=== PATIENT | male | born 1995 | race Caucasian/White ===

== ENCOUNTER 2020-01-07 07:09 | Emergency (ER) | payer SELFPAY ==
[~2020-01-07] VITALS: Ht 175.3 cm; Wt 90.9 kg
[2020-01-07 07:53] VITALS: BP 129/81
== END 2020-01-07 07:55 | disposition home or self-care (01) ==
LOC: ER 07:10
DX: J20.9 Acute bronchitis, unspecified (principal); R05 Cough
CPT/HCPCS: 99282

== ENCOUNTER 2024-10-31 09:03 | Emergency (ER) | payer BC ==
[~2024-10-31] VITALS: Ht 175.3 cm; Wt 109.1 kg
[2024-10-31 09:15] VITALS: TEMP 97.8
[2024-10-31] MEDS ORDERED: AMOX-117 PO (10:11)
--- NOTE | 2024-10-31 10:12 | Physician Documentation ---
History of Present Illness ~ Chief Complaint: Ear Pain Stated Complaint: L SIDED FACIAL SWELLING/EAR PAIN Time Seen by MD: 10:07 Primary Medical Doctor: [facility] HPI This is a pleasant 29-year-old gentleman with no known allergies presents for evaluation of left ear pain/left jaw pain for the last two days. No obvious trigger, trauma provocation. Throat does not hurt. Treat it with [id number] ibuprofen and Tylenol. Has a known history of poor dentition and caries in the molar tooth on that jaw. Denies any other symptoms. No concern for tobacco, alcohol or illicit substances use. Medication Reconciliation Allergies: Coded Allergies: No Known Allergies (Unverified , 10/31/24) Past Medical History Past Medical History: No Pertinent History Past Surgical History: no surgical history Alcohol Use: None Drug Use: none Lives with: Family Lives In: Home Occupation: employed, student Review of Systems ROS 10 point review of systems was performed and unless noted above in HPI is negative for acute process/complaint. Physical Exam Vital Signs: Temperature: 97.8, Heart Rate: 66, Respiratory Rate: 14, BP: 135/82, Pulse Oximetry: 99, Weight: 109.090 Physical Exam Physical examination: GENERAL: Awake, alert, oriented, GCS 15, no apparent distress, non-toxic appearing, answers questions, follows commands appropriately. HEENT: Atraumatic, normocephalic, pupils equal, extraocular muscles intact Active gross movements, sclerae anicteric, mucus membranes moist, no stridor. NECK: Midline, no JVD CARDIOVASCULAR: Good skin perfusion without evidence of pallor, mottling. PULMONARY: Nonlabored, symmetric chest rise, no audible wheezing, no accessory muscle use, no respiratory distress, speaking in full sentences. GASTROINTESTINAL: Not distended. NEUROLOGIC: Lucid with normal mental status. Normal facial symmetry. Moves all extremities symmetrically and with purpose. No truncal ataxia. Speech is fluid without evidence of dysarthria or aphasia, no focal deficits appreciated. EXTREMITIES: Acute deformities Skin: warm, dry PSYCHIATRIC: Normal affect, normal insight, normal concentration. Focused exam: [] Bilateral tympanic membranes are within normal limits without evidence of erythema, bulging or fluid behind it. The posterior oropharynx is unremarkable without erythema or exudate. Poor dentition and caries in the 2nd molar on the left mandible noted. No floor of the mouth elevation, no brawny submandibular erythema, no trismus, no drooling, no hot potato voice. No flexion or extension of the head pain. Progress Results/Orders Results/Orders Vital Signs 10/31/24 09:15 Temp 97.8 Pulse 66 Resp 14 B/P (MAP) 135/82 Pulse Ox 99 Medical Decision Making Findings Facility Status: ED Holds, E process The plan was discussed with the patient, who demonstrates clear understanding of the plan and is in agreement with the plan unless otherwise noted in the chart. All questions have been answered, all concerns were addressed unless otherwise documented. I was available throughout their ED stay for frequent reassessment and questions. Differential Diagnoses (considered and possible or likely): [Acute otitis media, otitis media with a fusion, otitis externa, clinically no evidence of mastoiditis. With respect to potential dental source of this pain differential includes but not limited to dental pain, dental infection, clinically no evidence of abscess. Not consistent with Arben's angina. No evidence of corrina tonsillar retropharyngeal abscess.] ??Differential Diagnoses (considered and unlikely, not requiring evaluation currently): [] See above MDM Data Please see HPI for the following: Independent Historians and external Records Review. Historian: [Patient] Independent Historians: ?[None] Medication Management: [Reviewed medication list] Social History and determinants: [Reviewed] Please see the body of the note for the following: Any independent interpretations of ECG, imaging studies. All vitals signs/haemodynamics, ordered tests were independently reviewed and interpreted by myself. Nursing triage complaint and vitals reviewed, additional nursing notes were reviewed as available and I agree unless otherwise noted or documented in contradiction in the chart Vital Signs: Independently reviewed Labs: Independently interpreted Imaging: Independently interpreted Old Medical Records: Independently reviewed, see HPI for relevant summary and information Pulse Oximetry: [99%] interpreted as [normal on room air] by me Additionally notably showing: [Hemodynamically stable.] Tests considered but not ordered include: [Hematologic workup and imaging has been considered but does not appear to be necessary given clinical nature of diagnosis] Social Determinants of Health Impact: Patient was evaluated in [facility], [facility] [place] to healthcare due to below par ratio of patient to medical providers. [] Comorbid Conditions Impacting Present Evaluation and Care/Treatment: [Poor dentition, history of ear infections in childhood] Management Discussions with other Healthcare Providers: [None] Treatment and Disposition Medication Management (Given or considered): []. See EMR for details Consideration for Hospitalization/Escalation/Deescalation of Care: Admission for observation has been considered, [however the patient is able to tolerate p.o., their symptoms are controlled, they are able to rely on oral medications, and their chief complaint/diagnosis can be managed on outpatient basis.] ?ED Course:?[No clinical deterioration, no airway compromise] ?Shared decision making:?[Patient is hemodynamically stable for discharge home with follow with their primary care provider. [ ] Specific and cautious return precautions provided and discussed with full understanding. Any incidental findings were also discussed and follow up recommendations given. [] All questions answered. Patient/family were able to verbalize back return precautions. Patient/family agree to plan. Copies of imaging and laboratory studies were provided.] Code status:?FULL Please see the full Electronic Medical Record for full details of nursing documentation, medications list, other records of complete past medical history and conditions, vital signs, laboratory studies, and any radiologic study interpretations by radiologists. Portions of this note were completed using [email or web address] dictation software and as a result there may exist minor errors in spelling. I have reviewed elements of past family and social history and agree as included in note. Departure Disposition: HOME / SELF CARE / HOMELESS Impression: Primary Impression: Pain, dental Condition: Improved Discharge Instructions: Dental Pain Referrals: NO PRIMARY CARE PROVIDER (PCP) Prescriptions Amox Tr/Potassium Clavulanate (Augmentin 875-125 Tablet) 1 Each Tablet 1 TAB PO Q12H for 10 Days, #20 TAB Prov: KAYLYN DUMONT DO 10/31/24 Education Educated: Patient Educated regarding: diagnosis, treatment, prognosis, need for follow up Signature Scribe Signature: No scribe Attestation: This note accurately reflects clinical decisions, work performed by myself, DO TIM Felix NICHOLAS M DO October 31, 2024 10:12
[2024-10-31 10:28] VITALS: BP 139/89; PULSE 67; RESP 18; O2SAT 99
== END 2024-10-31 10:29 | disposition home or self-care (01) ==
LOC: ER 09:04
DX: K08.89 Other specified disorders of teeth and supporting structures (principal); H92.02 Otalgia, left ear
CPT/HCPCS: 99283

== ENCOUNTER 2024-11-22 03:05 | Emergency (ER) | payer BC ==
[~2024-11-22] VITALS: Ht 175.3 cm; Wt 112.7 kg
--- NOTE | 2024-11-22 06:03 | Physician Documentation ---
History of Present Illness ~ Chief Complaint: Ear Pain Stated Complaint: EAR PAIN Time Seen by MD: 06:02 Primary Medical Doctor: [facility] 21-year-old male presenting for left ear pain. He was seen on October 31 for left jaw pain/ear pain and he was given 10 day course of Augmentin. This helped his symptoms however they returned yesterday evening. He describes pain in his left upper jaw just at the base of his left ear. He feels a pulsing sensation in his had difficulty falling asleep due to the discomfort Medication Reconciliation Allergies: Coded Allergies: No Known Allergies (Unverified , 10/31/24) Past Medical History Past Medical History: No Pertinent History Past Surgical History: no surgical history Alcohol Use: None Drug Use: none Lives with: Family Lives In: Home Occupation: employed, student Review of Systems Constitutional: Denies: fever Physical Exam Vital Signs: Temperature: 98.1, Heart Rate: 86, Respiratory Rate: 16, BP: 142/97, Pulse Oximetry: 97, Weight: 112.730 Physical Exam Well-appearing no distress EOMI Moist mucous membranes Clear oropharynx no trismus Tenderness over left upper molar no abscess Left ear canal clear. Normal tympanic membrane No mastoid tenderness Neuro awake alert oriented Progress Results/Orders Reviewed/noted all lab results: Yes Results/Orders Vital Signs 11/22/24 03:17 Temp 98.1 Pulse 86 Resp 16 B/P (MAP) 142/97 Pulse Ox 97 Medical Decision Making Ear Diff. Dx: Considerations: Include: Abrasion, Cerumen impaction, Otitis media, Perforation Eye Diff. Dx: Considerations: Include: Conjuctivitis-viral, Corneal abrasion Throat Diff Dx: Considerations: Include: Epiglottitis Departure Disposition: HOME / SELF CARE / HOMELESS Impression: Primary Impression: Pain, dental Additional Impression Text 21-year-old male presenting for ear pain and jaw pain. Underwent 1 round antibiotics earlier this month for dental infection. He has upcoming appointment in 2 weeks with Dentistry. He is afebrile. No trismus. No palpable abscess. Given initial improvement with antibiotics and then return if symptoms is reasonable to continue his antibiotic course until he is able to see Dentistry Additional Instructions: Please take naproxen 500 mg every 12 hours for discomfort as needed for the next few days weird you may try taking antibiotics again however ultimately he will need definitive treatment with a dentist. Return to the emergency department if you develop fever Referrals: NO PRIMARY CARE PROVIDER (PCP) Prescriptions Amox Tr/Potassium Clavulanate (Augmentin 875-125 Tablet) 1 Each Tablet 1 TAB PO Q12H for 7 Days, #10 TAB Prov: KAYLYN BOWENS MD 11/22/24 Signature Scribe Signature: davide Attestation: KAYLYN Castorena MD November 22, 2024 06:03
[2024-11-22] MEDS ORDERED: AMOX-117 PO (06:26)
[2024-11-22] MEDS: amox tr/potassium clavulanate 875/125mg TAB PO ONE (06:33)
[2024-11-22] MEDS: naproxen 500mg tablet PO ONE (06:33)
[2024-11-22 06:37] VITALS: BP 140/90; PULSE 84; RESP 18; TEMP 98.6; O2SAT 99
== END 2024-11-22 06:38 | disposition home or self-care (01) ==
LOC: ER 03:05
DX: K08.89 Other specified disorders of teeth and supporting structures (principal); H92.02 Otalgia, left ear
CPT/HCPCS: 99283